=== PATIENT | female | born 1995 | race Caucasian/White ===

== ENCOUNTER 2017-04-22 10:58 | Emergency (ER) | payer OTHER ==
[2017-04-22] MEDS ORDERED: DEXAMETHASONE 2 MG TAB PO ONE (11:43)
[2017-04-22] MEDS ORDERED: IBUPROFEN 600 MG TAB PO ONE (11:43)
[2017-04-22] MEDS ORDERED: DEXAMETHASONE 4 MG TAB ONE (11:50)
[2017-04-22] MEDS ORDERED: DEXAMETHASONE 4 MG TAB PO ONE (11:56)
--- NOTE | 2017-04-22 12:49 | EDPHY ---
H & P Time Seen by Provider: 04/22/17 11:33 HPI/ROS: CHIEF COMPLAINT: Sore throat HISTORY OF PRESENT ILLNESS: Patient is had several episodes of being sick lately. She was at a [facility] 2 weeks ago for abdominal pain had ultrasound and CT and his outpatient GI follow-up arranged. She still has intermittent abdominal pain. Patient has been sick though since Sunday with ENT symptoms. She started with congestion and then progressed to feeling stuffy and dizzy and last night around 1800 in the evening she developed sore throat fever and chills and pain with swallowing. Symptoms moderate not associated with neck stiffness or headache. REVIEW OF SYSTEMS: Eye: no change in vision ENT: HPI, right earache Cardiac: no chest pain or syncope Pulmonary: no cough or SOB Abdomen: HPI, no vomiting or diarrhea today. Intermittent left-sided abdominal pain which is mild. Musculoskeletal: no back pain Skin: no rash Neuro: no headache Constitutional: Fever and chills : no urinary symptoms A comprehensive 10 point review of systems is otherwise negative aside from elements mentioned in the history of present illness. PAST MEDICAL HISTORY: IUD, otherwise as in HPI Social history: No recent foreign travel General Appearance: Alert and conversant, cooperative. Eyes: No scleral icterus. ENT, Mouth: Normal tympanic membranes bilaterally. No trismus. Pharyngeal erythema with some tonsillar swelling but no exudate. Full range of motion of the neck. Some anterior cervical lymphadenopathy. No facial swelling. No stridor or drooling. Respiratory: Normal respiratory effort, breath sounds equal, lungs are clear to auscultation. Cardiovascular: Regular rate and rhythm. Gastrointestinal: Abdomen is soft and non tender. Neurological: Alert and oriented x3. Normally conversant. Face symmetric, normal movement and sensation in all extremities. Skin: Warm and dry, no rashes. Musculoskeletal: No peripheral edema and no joint swelling. Psychiatric: Not agitated. Emergency Department course/MDM: Strep negative. Oral dexamethasone discussed and consented, oral ibuprofen. I think that deep space infection such as Cruz's angina or epiglottitis or retropharyngeal abscess or meningitis is unlikely. Influenza test pending. 1614: FLU negative, rhinovirus positive. Supportive care as above. Smoking Status: Current some day smoker Constitutional: Initial Vital Signs Temperature (C) 37.6 C 04/22/17 11:01 Heart Rate 97 04/22/17 11:01 Respiratory Rate 20 04/22/17 11:01 Blood Pressure 105/54 L 04/22/17 11:01 O2 Sat (%) 95 04/22/17 11:01 O2 Delivery Mode Room Air Allergies/Adverse Reactions: No Known Allergies Allergy (Verified 04/22/17 11:01) Home Medications: Medication Instructions Recorded NO HOME MEDICATIONS 06/07/11 MDM/Departure - MDM Medications Given: Discontinued Medications Dexamethasone (Decadron) 8 mg PO EDNOW ONE Stop: 04/22/17 11:57 Last Admin: 04/22/17 12:07 Dose: 8 mg Ibuprofen (Motrin) 600 mg PO EDNOW ONE Stop: 04/22/17 11:44 Last Admin: 04/22/17 11:53 Dose: 600 mg - Depart Disposition: Home, Routine, Self-Care Clinical Impression: Acute pharyngitis Qualifiers: Pharyngitis/tonsillitis etiology: unspecified etiology Qualified Code(s): J02.9 - Acute pharyngitis, unspecified Condition: Good Instructions: Pharyngitis (ED) Additional Instructions: Follow-up with ear nose and throat physician on Sunday if you're still having significant sore throat. Oral ibuprofen 600 mg every 8 hours. Strep test negative. Please call [phone] this afternoon follow up on influenza test results. You received 8 mg oral dexamethasone in the emergency department. Referrals: Sebas Adams MD [Medical Doctor] - As per Instructions Andrew Langston PA [Physician Evs Attendant] - As per Instructions
[2017-04-22 12:51] VITALS: BP 107/58; PULSE 76; RESP 16; TEMP 99.4; O2SAT 94
== END 2017-04-22 12:57 | disposition home or self-care (01) ==
DX: J02.9 Acute pharyngitis, unspecified (principal); F17.200 Nicotine dependence, unspecified, uncomplicated

== ENCOUNTER 2017-09-24 04:59 | Emergency (ER) | payer OTHER ==
[2017-09-24 05:08] VITALS: RESP 16
[2017-09-24] MEDS ORDERED: ONDANSETRON 4 MG/2 ML VIAL IVP ONE ×2 (05:29→06:01)
[2017-09-24] MEDS ORDERED: ONDANSETRON 4 MG/2 ML VIAL ONE (05:29)
[2017-09-24] MEDS ORDERED: NS 1,000 ML IV ONE (06:01)
[2017-09-24 06:18] LABS: PLATELET COUNT 214 10^3/uL (150-400)
--- NOTE | 2017-09-24 06:20 | EDPHY ---
H & P Stated Complaint: N/V, abd pain since 1600 yesterday Time Seen by Provider: 09/24/17 05:56 HPI/ROS: HPI The patient presents with abdominal pain, nausea and vomiting which has been present since about 4:00 p.m. yesterday. The pain started slowly with an upset stomach and got progressively worse. She had pain initially near her umbilicus , now it radiates to her lower quadrants. It is intermittent and sharp. Is associated with nausea and 1 episode of vomiting. She has a history of similar pain in March of 2017. She was seen at an outside hospital and had CT scan of her abdomen and ultrasound performed which demonstrated what sounds like a pelvic free fluid. She eliminated gluten and dairy from her diet and felt better. She has not had any dysuria or hematuria. She does not have any vaginal discharge. She is not sure of her last menstrual period because she has Nexplanon and does not have regular menses.. REVIEW OF SYSTEMS Constitutional: No fever, no chills. Eyes: No discharge. ENT: No sore throat. Cardiovascular: No chest pain, no palpitations. Respiratory: No cough, no shortness of breath. Gastrointestinal: See HPI Genitourinary: No hematuria. Musculoskeletal: No back pain. Skin: No rashes. Neurological: No headache. PMHx: Prior episode of similar pain Soc Hx: College student PHYSICAL General Appearance: Alert, no distress Eyes: Pupils equal and round no pallor or injection ENT, Mouth: Mucous membranes moist Respiratory: There are no retractions, lungs are clear to auscultation Cardiovascular: Regular rate and rhythm Gastrointestinal: Abdomen is soft with tenderness in the right greater than left lower quadrants without any rebound or guarding Neurological: A&O, moves all extremities Skin: Warm and dry, no rashes Musculoskeletal: Neck is supple non tender Extremities: symmetrical, full range of motion Psychiatric: Patient is oriented X 3, there is no agitation Source: Patient Exam Limitations: No limitations - Personal History LMP (Females 10-55): Extended Cycle BCP/Inj Current Tetanus/Diphtheria Vaccine: Yes - Medical/Surgical History Hx Asthma: No Hx Chronic Respiratory Disease: No Hx Diabetes: No Hx Cardiac Disease: No Hx Renal Disease: No Hx Cirrhosis: No Hx Alcoholism: No Hx HIV/AIDS: No Hx Splenectomy or Spleen Trauma: No Other PMH: none reported - Social History Smoking Status: Current some day smoker Constitutional: Initial Vital Signs Temperature (C) 36.5 C 09/24/17 05:03 Heart Rate 85 09/24/17 05:03 Respiratory Rate 16 09/24/17 05:03 Blood Pressure 125/83 H 09/24/17 05:03 O2 Sat (%) 96 09/24/17 05:03 O2 Delivery Mode Room Air Allergies/Adverse Reactions: No Known Allergies Allergy (Verified 09/24/17 05:05) Home Medications: Medication Instructions Recorded NO HOME MEDICATIONS 06/07/11 Medical Decision Making - Diagnostics Imaging Results: Ultrasound right lower quadrant and pelvis demonstrates trace fluid in the right lower quadrant, otherwise unremarkable, discussed with Dr. Stock Radiology. Imaging: Discussed imaging studies w/ call center director Radiologist, I viewed and interpreted images myself Differential Diagnosis: 22-year-old healthy female presents from home with several hours of abdominal pain, nausea, 1 episode of vomiting. On exam, she is tender in the right greater than left lower quadrants without rebound or guarding. Differential diagnosis includes appendicitis, ruptured ovarian cyst, ovarian torsion, gastroenteritis. In the emergency department, patient received IV fluids, pain medication and antiemetics. She felt better after this. Labs were checked and were unremarkable. Her ultrasound demonstrated trace in the right lower quadrant did not visualize the appendix. Her pain did not sound like appendicitis fever, leukocytosis, anorexia. This ultrasound is similar to her last 1 which was done in March of 2017 and demonstrated the free fluid once again. The cause of this is entirely clear, could be physiologic. I am not worried about appendicitis, ovarian torsion, ovarian cyst rupture. Her repeat abdominal exam is benign. I will discharge her home follow-up in 8 hr if her pain persists. Otherwise I have advised a follow-up with Gastroenterology. - Data Points Laboratory Results: Laboratory Results 09/24/17 05:15 09/24/17 06:05 09/24/17 09/24/17 09/24/17 06:05 05:15 05:15 WBC RBC Hgb Hct MCV MCH MCHC RDW Plt Count MPV Neut % (Auto) Lymph % (Auto) [place] % (Auto) Eos % (Auto) Baso % (Auto) Nucleat RBC Rel Count Absolute Neuts (auto) Absolute Lymphs (auto) Absolute Monos (auto) Absolute Eos (auto) Absolute Basos (auto) Absolute Nucleated RBC Immature Gran % Immature Gran # Sodium 144 mEq/L mEq/L (135-145) Potassium 4.2 mEq/L mEq/L (3.5-5.2) Chloride 104 mEq/L mEq/L (97-110) Carbon Dioxide 25 mEq/l mEq/l (22-31) Anion Gap 15 mEq/L mEq/L (8-16) BUN 13 mg/dL mg/dL (7-23) Creatinine 0.8 mg/dL mg/dL (0.6-1.0) Estimated GFR > 60 Glucose 90 mg/dL mg/dL (70-100) Calcium 9.7 mg/dL mg/dL (8.5-10.4) Total Bilirubin 0.7 mg/dL mg/dL (0.1-1.4) Conjugated Bilirubin 0.2 mg/dL mg/dL (0.0-0.5) Unconjugated Bilirubin 0.5 mg/dL mg/dL (0.0-1.1) AST 30 IU/L IU/L (14-46) ALT 25 IU/L IU/L (9-52) Alkaline Phosphatase 135 IU/L H IU/L (38-126) Total Protein 8.0 g/dL g/dL (6.3-8.2) Albumin 4.6 g/dL g/dL (3.5-5.0) Beta HCG, Qual NEGATIVE Urine Color YELLOW Urine Appearance CLEAR Urine pH 5.0 (5.0-7.5) Ur Specific [place] 1.015 (1.002-1.030) Urine Protein NEGATIVE (NEGATIVE) Urine Ketones NEGATIVE (NEGATIVE) Urine Blood NEGATIVE (NEGATIVE) Urine Nitrate NEGATIVE (NEGATIVE) Urine Bilirubin NEGATIVE (NEGATIVE) Urine Urobilinogen NEGATIVE EU EU (0.2-1.0) Ur Leukocyte Esterase NEGATIVE (NEGATIVE) Urine Glucose NEGATIVE (NEGATIVE) 09/24/17 05:15 WBC 8.61 10^3/uL 10^3/uL (3.80-9.50) RBC 5.07 10^6/uL 10^6/uL (4.18-5.33) Hgb 15.6 g/dL g/dL (12.6-16.3) Hct 44.8 % % (38.0-47.0) MCV 88.4 fL fL (81.5-99.8) MCH 30.8 pg pg (27.9-34.1) MCHC 34.8 g/dL g/dL (32.4-36.7) RDW 13.5 % % (11.5-15.2) Plt Count 214 10^3/uL 10^3/uL (150-400) MPV 11.9 fL H fL (8.7-11.7) Neut % (Auto) 45.3 % % (39.3-74.2) Lymph % (Auto) 43.0 % % (15.0-45.0) [place] % (Auto) 8.6 % % (4.5-13.0) Eos % (Auto) 1.5 % % (0.6-7.6) Baso % (Auto) 1.4 % % (0.3-1.7) Nucleat RBC Rel Count 0.0 % % (0.0-0.2) Absolute Neuts (auto) 3.90 10^3/uL 10^3/uL (1.70-6.50) Absolute Lymphs (auto) 3.70 10^3/uL H 10^3/uL (1.00-3.00) Absolute Monos (auto) 0.74 10^3/uL 10^3/uL (0.30-0.80) Absolute Eos (auto) 0.13 10^3/uL 10^3/uL (0.03-0.40) Absolute Basos (auto) 0.12 10^3/uL H 10^3/uL (0.02-0.10) Absolute Nucleated RBC 0.00 10^3/uL 10^3/uL (0-0.01) Immature Gran % 0.2 % % (0.0-1.1) Immature Gran # 0.02 10^3/uL 10^3/uL (0.00-0.10) Sodium Potassium Chloride Carbon Dioxide Anion Gap BUN Creatinine Estimated GFR Glucose Calcium Total Bilirubin Conjugated Bilirubin Unconjugated Bilirubin AST ALT Alkaline Phosphatase Total Protein Albumin Beta HCG, Qual Urine Color Urine Appearance Urine pH Ur Specific [place] Urine Protein Urine Ketones Urine Blood Urine Nitrate Urine Bilirubin Urine Urobilinogen Ur Leukocyte Esterase Urine Glucose Medications Given: Discontinued Medications Hydromorphone HCl (Dilaudid) 0.5 mg IVP EDNOW ONE Stop: 09/24/17 06:54 Last Admin: 09/24/17 06:54 Dose: 0.5 mg Sodium Chloride (Ns) 1,000 mls @ 0 mls/hr IV EDNOW ONE; Wide Open PRN Reason: Protocol Stop: 09/24/17 06:02 Last Admin: 09/24/17 06:08 Dose: 1,000 mls Ondansetron HCl (Zofran) 4 mg IVP EDNOW ONE Stop: 09/24/17 05:30 Last Admin: 09/24/17 05:37 Dose: 4 mg Ondansetron HCl (Zofran) 4 mg IVP EDNOW ONE Stop: 09/24/17 06:02 Last Admin: 09/24/17 06:09 Dose: Not Given Departure - Departure Disposition: Home, Routine, Self-Care Clinical Impression: Right lower quadrant abdominal pain, Nausea & vomiting Condition: Good Instructions: Acute Abdominal Pain (ED) Additional Instructions: Please return to the emergency department if your worse in any way. You should follow up with the student counselor, their phone numbers below. Referrals: Gastroenterology [facility] [Provider Group] - As per Instructions Stand Alone Forms: School Excuse
[2017-09-24] MEDS ORDERED: HYDROmorphONE/DILAUDID 1 MG/ML INJ ONE (06:39)
[2017-09-24] MEDS ORDERED: HYDROmorphONE/DILAUDID 1 MG/ML INJ IVP ONE (06:53)
[2017-09-24] MEDS ORDERED: ONDANSETRON 4MG PREPACK#2 BTL TAKEHOME ONE (07:35)
[2017-09-24 07:56] VITALS: BP 112/68; PULSE 62; TEMP 98.2; O2SAT 95
== END 2017-09-24 07:56 | disposition home or self-care (01) ==
PROC: 3E0337Z Introduction of Electrolytic and Water Balance Substance into Peripheral Vein, Percutaneous Approach (ICD-10-PCS; principal; 2017-09-24)
DX: R10.31 Right lower quadrant pain (principal); R11.2 Nausea with vomiting, unspecified; E86.9 Volume depletion, unspecified; F17.200 Nicotine dependence, unspecified, uncomplicated
CPT/HCPCS: 96374; J1170; J2405

== ENCOUNTER 2018-02-25 18:28 | Emergency (ER) | payer OTHER ==
[2018-02-25] MEDS ORDERED: KETOROLAC 30 MG/1 ML SDV IVP ONE (18:59)
[2018-02-25] MEDS ORDERED: NS 1,000 ML IV ONE (18:59)
[2018-02-25] MEDS ORDERED: ONDANSETRON 4 MG/2 ML VIAL IVP ONE (18:59)
--- NOTE | 2018-02-25 19:04 | EDPHY ---
H & P Stated Complaint: RLQ pain - Personal History LMP (Females 10-55): Now Current Tetanus/Diphtheria Vaccine: Yes Current Tetanus Diphtheria and Acellular Pertussis (TDAP): Yes - Medical/Surgical History Hx Asthma: No Hx Chronic Respiratory Disease: No Hx Diabetes: No Hx Cardiac Disease: No Hx Renal Disease: No Hx Cirrhosis: No Hx Alcoholism: No Hx HIV/AIDS: No Hx Splenectomy or Spleen Trauma: No Other PMH: UTI, - Social History Smoking Status: Current some day smoker Time Seen by Provider: 02/25/18 18:37 HPI/ROS: CHIEF COMPLAINT: Right lower quadrant pain since this afternoon HISTORY OF PRESENT ILLNESS: 22-year-old female arrives via private vehicle complaining right lower quadrant abdominal pain since this afternoon. She describes multiple recent UTI like symptoms for which she completed a course of antibiotics 1 month ago. Today she describes right lower quadrant abdominal pain with radiation to her back, not flank pain. No nausea or vomiting. No fever or chills. No trauma. No history of abdominal surgeries. REVIEW OF SYSTEMS: A ten point review of systems was performed and is negative with the exception of the items mentioned in the HPI PAST MEDICAL & SURGICAL HISTORY: No pertinent medical or surgical history SOCIAL HISTORY: Nonsmoker. PHYSICAL EXAM (Prior to examination, patient consented to physical exam, hands were washed and my usual and customary physical exam procedures followed) 1) GENERAL: Well-developed, well-nourished, alert and oriented. Appears uncomfortable, crying 2) HEAD: Normocephalic, atraumatic 3) HEENT: Pupils equal, round, reactive to light bilaterally. Sclera anicteric. [Nasopharynx, oropharynx, clear, no lesions. Dry mucous membrane 4) NECK: Full range of motion, no meningeal signs. 5) LUNGS: Clear auscultation bilaterally, no wheezes, no rhonchi, no retractions. 6) HEART: Regular rate and rhythm, no murmur, no heave, no gallop. 7) ABDOMEN: guarding abdomen, focally tender to palpation right lower quadrant, negative McBurney's, negative Wilcox's, negative Rovsing's, negative peritoneal sign, 8) MUSCULOSKELETAL: Moving all extremities, no focal areas of tenderness, no obvious trauma. No peripheral edema or discoloration. 9) BACK: No CVA tenderness, no midline vertebral tenderness, no fluctuance, no step-off, no obvious trauma, no visual or palpable abnormality. 10) SKIN: No rash, no petechiae. 11) Psychiatric: Patient is oriented X 3, there is no agitation. DIFFERENTIAL DIAGNOSIS: My differential diagnosis includes, but is not limited to, acute appendicitis, acute cholecystitis, bowel obstruction, acute pancreatitis, ovarian torsion, ectopic , gastritis and urinary tract infection. The patient understands that this diagnosis is provisional and can never be 100% accurate. This is a partial list of diagnoses considered. These considerations are based on history, physical exam, past history and reassessment. (Yuko Weiss) Constitutional: Initial Vital Signs Temperature (C) 36.9 C 02/25/18 18:31 Heart Rate 110 H 02/25/18 18:31 Respiratory Rate 16 02/25/18 18:31 Blood Pressure 107/77 02/25/18 18:31 O2 Sat (%) 96 02/25/18 18:31 O2 Delivery Mode Room Air Allergies/Adverse Reactions: No Known Allergies Allergy (Verified 02/25/18 18:30) Home Medications: Medication Instructions Recorded NO HOME MEDICATIONS 06/07/11 Adderall 10 MG (*) 02/25/18 Cephalexin [Keflex] 500 mg PO TID 7 Days cap 02/25/18 Peg 3350/Na Sulf,Bicarb,Cl/KCl 1,000 ml PO ONCE #4000 ml 02/25/18 [Golytely (RX)] Phenazopyridine HCl [Pyridium] 200 mg PO PC #10 tab 02/25/18 Ritalin 10mg (*) 02/25/18 oxyCODONE/APAP 5/325 [Percocet 1 tab PO Q6 #7 tab 02/25/18 5/325] Medical Decision Making - Diagnostics Imaging Results: Images reviewed myself (Yuko Weiss) ED Course/Re-evaluation: 7:04 p.m. patient the quite a bit of discomfort with focal tenderness right lower quadrant. Will obtain diagnostic studies including ultrasonographic imaging. She remains NPO since 3:00 p.m. Today. I saw this patient independently based on established practice protocols. Care of patient under supervision of secondary supervising physician Dr Ugalde with whom I discussed case. 8:29 p.m.: Re-evaluation. These ultrasound is nondiagnostic for appendicitis. 2.9 cm right ovarian cyst is visualized. Upon re-evaluating the patient she has received morphine, Toradol, she is crying, continues to complain of intractable pain. Re-evaluation her abdomen remains exquisitely tender to palpation right lower quadrant. We discussed indications risks benefits of CT imaging, we discussed 12 hr recheck. She would prefer CT imaging now as this appendicitis is not fully ruled out. 9:46 p.m.: Re-evaluation. Resting comfortably. Doubt pyelonephritis. Discussed imaging studies showing no evidence of acute appendicitis. Doubt acute surgical abdominal pathology. Doubt plan will be discharge with antibiotics. Usual and customary discharge precautions and instructions provided. (Yuko Weiss) I did not see this patient while she was in the emergency department. However her care was discussed with the PA while the patient was in the department. I agree with treatment plan and management (Олег Ugalde) - Data Points Laboratory Results: Laboratory Results 02/25/18 18:45 02/25/18 18:45 Medications Given: Discontinued Medications Hydromorphone HCl (Dilaudid) 1 mg IVP EDNOW ONE Stop: 02/25/18 20:30 Last Admin: 02/25/18 20:36 Dose: 1 mg Sodium Chloride (Ns) 1,000 mls @ 0 mls/hr IV EDNOW ONE; Wide Open PRN Reason: Protocol Stop: 02/25/18 19:00 Last Admin: 02/25/18 19:16 Dose: 1,000 mls Ceftriaxone Sodium/Dextrose (Rocephin 1 Gm (Premix)) 50 mls @ 100 mls/hr IV EDNOW ONE PRN Reason: Protocol Stop: 02/25/18 20:05 Last Admin: 02/25/18 20:10 Dose: 50 mls Ketorolac Tromethamine (Toradol) 15 mg IVP EDNOW ONE Stop: 02/25/18 19:00 Last Admin: 02/25/18 19:16 Dose: 15 mg Morphine Sulfate (Morphine) 6 mg IVP EDNOW ONE Stop: 02/25/18 19:00 Last Admin: 02/25/18 19:17 Dose: 6 mg Ondansetron HCl (Zofran) 4 mg IVP EDNOW ONE Stop: 02/25/18 19:00 Last Admin: 02/25/18 19:16 Dose: 4 mg Phenazopyridine HCl (Pyridium) 200 mg PO EDNOW ONE Stop: 02/25/18 21:49 Last Admin: 02/25/18 22:15 Dose: 200 mg Departure - Departure Disposition: Home, Routine, Self-Care Clinical Impression: Urinary tract infection, Constipation, Ovarian cyst Condition: Good Instructions: Ovarian Cyst (ED), Constipation (ED), Urinary Tract Infection in Women (ED) Additional Instructions: Seek immediate medical attention if you develop new or worsening symptoms, if you develop fevers, chills, inability to tolerate oral intake or any other symptoms that concerns you. Referrals: [facility] [Clinic] - 2-3 days, call for appt. Stand Alone Forms: Work Excuse Prescriptions: Cephalexin [Keflex] 500 mg PO TID 7 Days cap oxyCODONE/APAP 5/325 [Percocet 5/325] 1 tab PO Q6 #7 tab Peg 3350/Na Sulf,Bicarb,Cl/KCl [Golytely (RX)] 1,000 ml PO ONCE #4000 ml Phenazopyridine HCl [Pyridium] 200 mg PO PC #10 tab
[2018-02-25 19:09] LABS: PLATELET COUNT 185 10^3/uL (150-400)
[2018-02-25] MEDS ORDERED: SUMAtriptan 25 MG TAB PO ONE (20:18)
[2018-02-25] MEDS ORDERED: HYDROmorphONE/DILAUDID 1 MG/ML INJ IVP ONE (20:29)
[2018-02-25] MEDS ORDERED: IOPAMIDOL (ISOVUE-300) 100 ML BTL ONE (20:32)
[2018-02-25] MEDS ORDERED: PHENAZOPYRIDINE HCL 200 MG TAB PO ONE (21:48)
[2018-02-25 22:24] VITALS: BP 115/68
== END 2018-02-25 22:22 | disposition home or self-care (01) ==
DX: K59.00 Constipation, unspecified (principal); N83.201 Unspecified ovarian cyst, right side; N39.0 Urinary tract infection, site not specified; B96.20 Unspecified Escherichia coli [E. coli] as the cause of diseases classified elsewhere; E86.9 Volume depletion, unspecified; F17.200 Nicotine dependence, unspecified, uncomplicated
CPT/HCPCS: 96365; J0696; J1170; J1885; J2270; J2405; Q9967

== ENCOUNTER 2018-06-24 18:08 | Emergency (ER) | payer OTHER ==
--- NOTE | 2018-06-24 19:28 | EDPHY ---
H & P Time Seen by Provider: 06/24/18 19:27 HPI/ROS: Chief complaint. Headache, neck pain HPI. 22-year-old female presents emergency department with feeling sick since last night. Began with headache. No sore throat. She has had a fever. She does have tender neck and as well as body aches. Pressure in her ears. No cough. She had a urinary tract infection last week with frequency and dysuria but did not get treated tried to drink a lot of fluids and that seemed to go away. She does have some low back pain as well as suprapubic pain. Otherwise no travel or known exposures ROS 10 systems were reviewed and negative with the exception of the elements mentioned in the history of present illness Past Medical/Surgical History: UTI Social History: Single, daily smoker, no alcohol Smoking Status: Current some day smoker Physical Exam: General Appearance: Alert well-developed female mild distress vital signs show temp 37.1 degrees Eyes: Pupils equal and round no pallor or injection. ENT, tympanic membranes are normal. Pharynx mildly injected without exudate. There is no meningismus Respiratory: There are no retractions, lungs are clear to auscultation. Cardiovascular: Regular rate and rhythm. Gastrointestinal: Abdomen is soft with mild suprapubic tenderness and bilateral flank tenderness Neurological: Awake and alert, sensory and motor exams grossly normal. Skin: Warm and dry, no rashes. Musculoskeletal: Neck is supple nontender. Extremities symmetrical, full range of motion. Psychiatric: Patient is oriented X 3, there is no agitation. Constitutional: Initial Vital Signs Temperature (C) 37.1 C 06/24/18 18:26 Heart Rate 75 06/24/18 18:26 Respiratory Rate 18 06/24/18 18:26 Blood Pressure 125/85 H 06/24/18 18:26 O2 Sat (%) 97 06/24/18 18:26 O2 Delivery Mode Room Air Allergies/Adverse Reactions: No Known Allergies Allergy (Verified 06/24/18 18:25) Home Medications: Medication Instructions Recorded LEV 06/24/18 Medical Decision Making Procedures: IV normal saline. Tylenol for fever ED Course/Re-evaluation: Re-evaluation at 9:10 p.m.. Patient is stable. She feels well to go home. She and I discussed laboratory evaluation. Re-examination again shows the patient to spontaneously be moving her neck with conversation and no evidence for meningismus. I do not think she has meningitis Differential Diagnosis: I think this is viral syndrome. I thought she may have a urinary tract infection. I do not think she has meningitis currently. She looks well. - Data Points Laboratory Results: Laboratory Results 06/24/18 20:00 06/24/18 20:00 06/24/18 06/24/18 06/24/18 20:40 20:00 20:00 WBC 7.78 10^3/uL 10^3/uL (3.80-9.50) RBC 4.52 10^6/uL 10^6/uL (4.18-5.33) Hgb 13.5 g/dL g/dL (12.6-16.3) Hct 39.2 % % (38.0-47.0) MCV 86.7 fL fL (81.5-99.8) MCH 29.9 pg pg (27.9-34.1) MCHC 34.4 g/dL g/dL (32.4-36.7) RDW 12.6 % % (11.5-15.2) Plt Count 168 10^3/uL 10^3/uL (150-400) MPV 12.2 fL H fL (8.7-11.7) Neut % (Auto) 64.6 % % (39.3-74.2) Lymph % (Auto) 26.3 % % (15.0-45.0) [place] % (Auto) 5.5 % % (4.5-13.0) Eos % (Auto) 2.4 % % (0.6-7.6) Baso % (Auto) 0.9 % % (0.3-1.7) Nucleat RBC Rel Count 0.0 % % (0.0-0.2) Absolute Neuts (auto) 5.02 10^3/uL 10^3/uL (1.70-6.50) Absolute Lymphs (auto) 2.05 10^3/uL 10^3/uL (1.00-3.00) Absolute Monos (auto) 0.43 10^3/uL 10^3/uL (0.30-0.80) Absolute Eos (auto) 0.19 10^3/uL 10^3/uL (0.03-0.40) Absolute Basos (auto) 0.07 10^3/uL 10^3/uL (0.02-0.10) Absolute Nucleated RBC 0.00 10^3/uL 10^3/uL (0-0.01) Immature Gran % 0.3 % % (0.0-1.1) Immature Gran # 0.02 10^3/uL 10^3/uL (0.00-0.10) Sodium 137 mEq/L mEq/L (135-145) Potassium 4.1 mEq/L mEq/L (3.3-5.0) Chloride 107 mEq/L mEq/L (97-110) Carbon Dioxide 22 mEq/l mEq/l (22-31) Anion Gap 8 mEq/L mEq/L (6-14) BUN 12 mg/dL mg/dL (7-23) Creatinine 0.6 mg/dL mg/dL (0.6-1.0) Estimated GFR > 60 Glucose 94 mg/dL mg/dL (70-100) Calcium 9.0 mg/dL mg/dL (8.5-10.4) Urine Color YELLOW Urine Appearance MODERATELY TURBID Urine pH 7.0 (5.0-7.5) Ur Specific [place] 1.018 (1.002-1.030) Urine Protein NEGATIVE (NEGATIVE) Urine Ketones NEGATIVE (NEGATIVE) Urine Blood NEGATIVE (NEGATIVE) Urine Nitrate NEGATIVE (NEGATIVE) Urine Bilirubin NEGATIVE (NEGATIVE) Urine Urobilinogen 2.0 EU H EU (0.2-1.0) Ur Leukocyte Esterase NEGATIVE (NEGATIVE) Urine RBC 1-3 /hpf /hpf (0-3) Urine WBC 0-1 /hpf /hpf (0-3) Ur Epithelial Cells TRACE /lpf /lpf (NONE-1+) Amorphous Sediment PRESENT /hpf /hpf (NONE-1+) Urine Mucus TRACE /lpf /lpf (NONE-1+) Urine Glucose NEGATIVE (NEGATIVE) Medications Given: Discontinued Medications Acetaminophen (Tylenol) 650 mg PO EDNOW ONE Stop: 06/24/18 19:53 Last Admin: 06/24/18 19:58 Dose: 650 mg Sodium Chloride (Ns) 1,000 mls @ 0 mls/hr IV EDNOW ONE; Wide Open PRN Reason: Protocol Stop: 06/24/18 19:52 Last Admin: 06/24/18 19:58 Dose: 1,000 mls Sodium Chloride (Ns) 1,000 mls @ 0 mls/hr IV ONCE ONE; Wide Open PRN Reason: Protocol Stop: 06/24/18 20:30 Last Admin: 06/24/18 20:38 Dose: 1,000 mls Point of Care Test Results: Urine Collection Date 06/24/18 Collection Time 20:45 HCG Results Negative Departure - Departure Disposition: Home, Routine, Self-Care Clinical Impression: Viral syndrome Condition: Good Instructions: Viral Syndrome (ED) Additional Instructions: Drink plenty of fluids. Get plenty of sleep. Tylenol 650 mg every 4-6 hours, ibuprofen 4-600 mg every 6 hr for pain Return for worsening symptoms. Recheck in 1-2 days for continuing symptoms Referrals: NONE *PRIMARY CARE P,. [Primary Care Provider] - As per Instructions [facility],. [Clinic] - 1-2 days without fail
[2018-06-24] MEDS ORDERED: NS 1,000 ML IV ONE ×2 (19:51→20:29)
[2018-06-24] MEDS ORDERED: ACETAMINOPHEN 325 MG TAB PO ONE (19:52)
[2018-06-24 20:17] LABS: PLATELET COUNT 168 10^3/uL (150-400)
[2018-06-24 20:57] VITALS: BP 103/65
== END 2018-06-24 21:31 | disposition home or self-care (01) ==
DX: B34.9 Viral infection, unspecified (principal); E86.9 Volume depletion, unspecified; M54.2 Cervicalgia; M54.5 Low back pain; R10.2 Pelvic and perineal pain; F17.200 Nicotine dependence, unspecified, uncomplicated